=== PATIENT | female | born 1955 | race Caucasian/White ===

== ENCOUNTER → 2020-08-21 | Outpatient (CLI) | payer MEDICARE, OTHER ==
[~2020-08-21] MED LIST: AMARYL 2MG TABLE2 MG PO; COZAAR100 MG PO; ECOTRIN81 MG PO; ELIQUIS2.5 MG PO; FLONASE 0.05% N16 GM; PRAVACHOL20 MG PO; SYNTHROID150 MCG PO; TRULICITY0.75 MG/0. SQ; VITAMIN D250000 UNIT PO
[2020-08-21 16:39] LABS: RED BLOOD COUNT 4.42 M/UL (4.00-5.10); WHITE BLOOD COUNT 7.5 K/UL (4.5-11.0)
[2020-08-21 16:49] LABS: BUN/CREATININE RATIO 22 (0-10)
== END ==
LOC: LAB 15:21
PROVIDERS: Internal Medicine
DX: D89.89 Other specified disorders involving the immune mechanism, not elsewhere classified (principal); M32.9 Systemic lupus erythematosus, unspecified; M25.50 Pain in unspecified joint
CPT/HCPCS: 36415; 80053; 85025